=== PATIENT | female | born 1995 | race Caucasian/White ===

== ENCOUNTER 2017-04-18 10:34 | Day surgery (SDC) | payer OTHER ==
[2017-04-18] MEDS ORDERED: LIDOCAINE 1% 300 MG/30 ML SDV SC ONE (11:00)
--- NOTE | 2017-04-18 18:54 | EPPROC ---
Electrophysiology Procedure Note: LINQ monitor implant. Indication - presyncope with slow heart rate, palpitations Procedure - with sterile technique, after informed consent and after IV access was established, LINQ ILR was placed in left parasternal area using standard technique, wound closed with 2 clementine. Device SN [id number]. Device programmed to detect HR <40 bpm >167 bpm, pause >3 sec. R waves were 1.2 mV. No complications. Patient Problems: Problems Problem Status Onset Palpitations Acute
== END 2017-04-18 12:15 | disposition home or self-care (01) ==
LOC: FCATH 10:34
PROVIDERS: ATTEND Internal Medicine Cardiovascular Disease
PROC: 0JH602Z Insertion of Monitoring Device into Chest Subcutaneous Tissue and Fascia, Open Approach (ICD-10-PCS; principal; 2017-04-18)
DX: R00.2 Palpitations (principal); R55 Syncope and collapse
CPT/HCPCS: C1764

== ENCOUNTER 2017-08-22 07:25 | Day surgery (SDC) | payer OTHER ==
[2017-08-22] MEDS ORDERED: LIDOCAINE 1% 300 MG/30 ML SDV ONE (07:27)
[2017-08-22] MEDS ORDERED: BUPIVACAINE 0.5% 30 ML SDV ONE (07:27)
[2017-08-22] MEDS ORDERED: HEPARIN 10,000 UNIT/10 ML MDV ONE (07:27)
[2017-08-22] MEDS ORDERED: ISOPROTERENOL HCL/D5W 0.2 MG/50 ML BAG IV ONE (07:27)
[2017-08-22] MEDS ORDERED: NS 1,000 ML IV ONE (07:29)
--- NOTE | 2017-08-22 07:49 | CPEKG ---
Heart Rate: 64 RR Interval: 938 P-R Interval: 144 QRSD Interval: 100 QT Interval: 404 QTC Interval: 417 P Elma: 48 QRS Elma: 74 T Wave Elma: 31 EKG Severity - NORMAL ECG - EKG Impression: SINUS RHYTHM Electronically Signed By: Juan M London 22-Aug-2017 23:11:59
[2017-08-22 08:03] LABS: % IMMATURE GRANULYOCYTES 0.2 % (0.0-1.1); ABSOLUTE IMMATURE GRANULOCYTES 0.01 10^3/uL (0.00-0.10); ADD DIFF? NO; ADD MORPH? NO; ADD SCAN? NO; ATYPICAL LYMPHOCYTE FLAG 10 (0-99); FRAGMENT RBC FLAG 0 (0-99); LEFT SHIFT FLG 0 (0-99); LIPEMIA HEMOLYSIS FLAG 90 (0-99); MEAN CELL HEMOGLOBIN 31.5 pg (27.9-34.1); MEAN CELL HEMOGLOBIN CONCENTR. 34.9 g/dL (32.4-36.7); MEAN CELL VOLUME 90.3 fL (81.5-99.8); MEAN PLATELET VOLUME 9.2 fL (8.7-11.7); PLATELET CLUMPS FLAG 0 (0-99); PLATELET COUNT 302 10^3/uL (150-400); RED BLOOD CELL COUNT 4.76 10^6/uL (4.18-5.33); RED CELL DISTRIBUTION WIDTH 11.9 % (11.5-15.2)
--- NOTE | 2017-08-22 08:08 | PDANEPAE ---
ANE History of Present Illness here for EP study ANE Past Medical History - Cardiovascular History Hx Hypertension: No Hx Arrhythmias: No Hx Chest Pain: No Hx Coronary Artery / Peripheral Vascular Disease: No Hx CHF / Valvular Disease: No Hx Palpitations: Yes - Pulmonary History Hx COPD: No Hx Asthma/Reactive Airway Disease: No Hx Recent Upper Respiratory Infection: No Hx Oxygen in Use at Home: No Hx Sleep Apnea: No - Neurologic History Hx Cerebrovascular Accident: No Hx Seizures: No Hx Dementia: No - Endocrine History Hx Diabetes: No Hypothyroid: No Hyperthyroid: No Obesity: no - Renal History Hx Renal Disorders: No - Liver History Hx Hepatic Disorders: No - Neurological & Psychiatric Hx Hx Neurological and Psychiatric Disorders: No ANE Review of Systems Review of systems is: negative Review of Systems: - Exercise capacity Exercise capacity: >=4 METS ANE Patient History - Allergies Allergies/Adverse Reactions: amoxicillin Allergy (Verified 08/22/17 08:35) Anaphylaxis - Home Medications Home medications: home medication list seen and reviewed Home Medications: ISOMETHEPT/ACETAMINOP/DICHLPHN [Midrin Capsule] 1 each PO DAILY PRN 04/18/17 [ Last Taken 1 Week Ago ~08/15/17] - Anes Hx Anes Hx: no prior problems - Smoking Hx Smoking Status: Never smoked - Alcohol Use Alcohol Use: Occasionally ANE Labs/Vital Signs - Labs Result Diagrams: 08/22/17 07:50 08/22/17 07:50 - Vital Signs Height: 157.48 cm Weight: 54.431 kg ANE Physical Exam - Airway Neck exam: FROM Mallampati Score: Class 1 - Pulmonary Pulmonary: no respiratory distress - Cardiovascular Cardiovascular: regular rate and rhythym - ASA Status ASA Status: II ANE Anesthesia Plan Anesthesia Plan: general endotracheal anesthesia, GA w LMA
[2017-08-22 08:17] LABS: INR 1.01 (0.83-1.16); PROTIME(PATIENT) 13.5 SEC (12.0-15.0)
[2017-08-22 08:18] LABS: APTT 36.2 SEC (23.0-38.0)
[2017-08-22 08:23] LABS: ANION GAP 13 mEq/L (8-16); CALCIUM 9.4 mg/dL (8.5-10.4); CARBON DIOXIDE 23 mEq/l (22-31); CHLORIDE 107 mEq/L (97-110); GLOMERULAR FILTRATION RATE > 60; GLUCOSE 94 mg/dL (70-100); POTASSIUM 4.1 mEq/L (3.5-5.2); SODIUM 143 mEq/L (134-144)
--- NOTE | 2017-08-22 08:36 | PDGENHP ---
History & Physical Chief Complaint: palpitations History of Present Illness: palpitations Relevant Physical Exam: [id number] [id number]. cta. [id number] Cardiorespiratory Assessment: AT vs IST. For EP study, if AT induced will perform ablation
[2017-08-22] MEDS ORDERED: PROPOFOL/EMULSION 500 MG/50 ML BOTTLE IV ONE ×4 (08:44→09:58)
[2017-08-22] MEDS ORDERED: PROPOFOL 200 MG/20 ML VIAL ONE ×3 (09:00→10:28)
--- NOTE | 2017-08-22 10:40 | EPPROC ---
Electrophysiology Procedure Note: DIAGNOSTIC ELECTROPHYSIOLOGIC STUDY Procedures performed: 1. Fluoroscopy 2. EP evaluation with RA/RV/LA pace/record, with arrhythmia induction 3. EP evaluation with RA/RV pace record, insert/reposition catheter, with arrhythmia induction 4. Programmed stimulation + pacing after IV drug INDICATION: Palpitations Nonsustained atrial tachycardia seen on LINQ monitor PROCEDURE: Catheters & Anesthesia: The patient arrived in the Electrophysiology Laboratory in the fasting state. The right clavicular region, right groin, & left groin area were prepped & draped in the usual sterile manner. Dr. Foster administered sedation. Appropriate non-invasive blood pressure, pulse oximetry & end-tidal CO2 monitoring was established. All catheters were placed percutaneously using the modified Seldinger technique , and advanced into position under fluoroscopic guidance. One #7 [place] deflectable octapolar electrode catheter was advanced to the His-bundle position via the R femoral vein (2mm spacing). One #7 [place] deflectable catheter with 10 pairs of electrodes was placed via the right femoral vein into the coronary sinus. Programmed stimulation was performed from the right atrium, right ventricle and coronary sinus (left atrium). Parahisian pacing demonstrated constant H-A interval with changing V-A intervals and stimulus-A intervals during capture and loss of capture of proximal RBB proving retrograde conduction over AV node. Heparin 2500 U was administered. No sustained reentrant tachycardia was induced during programmed stimulation at baseline or during graded doses of isoproterenol up to 4 mcg/min. Sustained atrial flutter was seen, this has not been seen clinically and was not targeted for ablation. Up to 2 AV stacey echoes were seen, sustained AVNRT was not inducible. No ablation was performed. The catheters were removed. The patient was transferred to the cardiovascular holding area in stable condition. Vascular access sheaths were removed in the holding area. There were no apparent complications. Results: A. Spontaneous Intervals: SCL 760 ms AH 80 ms HV 45 ms B. Antegrade AV stacey function (decremental pacing) FPERP 460 ms SPERP 410 ms WBB CL 400 ms C. Retrograde AV stacey function (decremental pacing) FPERP 480 ms WBB CL 470 ms CONCLUSIONS 1. Normal sinus and AV node function. 2. No evidence of accessory AV pathway presence. 3. No sustained arrhythmias induced. 4. No apparent complications. Patient Problems: Problems Problem Status Onset Palpitations Acute
[2017-08-22] MEDS ORDERED: ACETAMINOP PO PRN ×2 (10:47→10:51)
[2017-08-22] MEDS ORDERED: ISOMETHEPT PO PRN ×2 (10:47→10:51)
[2017-08-22] MEDS ORDERED: DICHLPHN PO PRN ×2 (10:47→10:51)
--- NOTE | 2017-08-22 10:52 | POSTANESTH ---
Post Anesthetic Evaluation Cardiovascular Status: Normal, Stable Respiratory Status: Normal, Stable Level of Consciousness/Mental Status: Moderately Sleepy Pain Control: Adequate, Prn Tx Ordered Nausea/Vomiting Control: Adequate, Prn Tx Ordered Complications Possibly Related to Anesthesia: None Noted
[2017-08-22] MEDS ORDERED: IBUPROFEN 200 MG TAB PO ONE (13:15)
[2017-08-23] MEDS ORDERED: ASPIRIN 81 MG CHEWABLE TAB PO SCH (09:00)
== END 2017-08-22 16:16 | disposition home or self-care (01) ==
LOC: FCATH 07:25
PROVIDERS: ATTEND Internal Medicine Cardiovascular Disease
PROC: 5A1213Z Performance of Cardiac Pacing, Intermittent (ICD-10-PCS; principal; 2017-08-22)
PROC: 4A023FZ Measurement of Cardiac Rhythm, Percutaneous Approach (ICD-10-PCS; principal; 2017-08-22)
PROC: 02573ZZ Destruction of Left Atrium, Percutaneous Approach (ICD-10-PCS; principal; 2017-08-22)
PROC: B2161ZZ Fluoroscopy of Right and Left Heart using Low Osmolar Contrast (ICD-10-PCS; principal; 2017-08-22)
PROC: 025L3ZZ Destruction of Left Ventricle, Percutaneous Approach (ICD-10-PCS; principal; 2017-08-22)
PROC: 02563ZZ Destruction of Right Atrium, Percutaneous Approach (ICD-10-PCS; principal; 2017-08-22)
DX: R00.2 Palpitations (principal); I47.1 Supraventricular tachycardia
CPT/HCPCS: C1731; J1644; J2704